=== PATIENT | male | born 1980 | race African-American/Black ===

== ENCOUNTER 2022-09-10 22:21 | Emergency (ER) | payer OTHER ==
--- NOTE | 2022-09-10 23:58 | NUR ---
CALLED TO TRIAGE NA X1
--- NOTE | 2022-09-11 00:13 | NUR ---
CALLED TO TRIAGE NAX2
--- NOTE | 2022-09-11 00:33 | NUR ---
CALLED TO TRIAGE NAX3
== END 2022-09-11 00:34 | disposition left against medical advice (07) ==
LOC: ER 22:33
DX: Z53.21 Procedure and treatment not carried out due to patient leaving prior to being seen by health care provider (principal)

== ENCOUNTER 2022-09-16 20:50 | Emergency (ER) | payer OTHER ==
[~2022-09-16] VITALS: Ht 177.8 cm; Wt 76.2 kg
--- NOTE | 2022-09-16 22:08 | NUR ---
BIBFRIEND C/O HEADACHE R SIDE X3 WEEKS. PT A/OX4. TOLERATING R/A WELL WITH NO RESP DISTRESS.
[2022-09-16] MEDS ORDERED: METOCLOPRAMIDE HCL 10 MG/2 ML VIAL ONE (22:38)
[2022-09-16] MEDS ORDERED: ACETAMINOPHEN ES 500 MG TABLET ONE (22:38)
--- NOTE | 2022-09-16 22:50 | NUR ---
RAC #20G S/L BLOOD COLLECTED AND SENT TO LAB
--- NOTE | 2022-09-16 22:52 | NUR ---
PT TAKEN TO CT VIA [facility]
[2022-09-16] MEDS ORDERED: IV NS 0.9% 1,000 ML BAG IV ONE (23:00)
[2022-09-16] MEDS ORDERED: METOCLOPRAMIDE HCL 10 MG/2 ML VIAL IV ONE (23:00)
[2022-09-16] MEDS ORDERED: ACETAMINOPHEN ES 500 MG TABLET PO ONE (23:00)
[2022-09-16 23:13] LABS: CREATININE 1.4 mg/dL (0.6-1.3); POTASSIUM 3.8 mmol/L (3.5-5.1)
[2022-09-16 23:17] LABS: BASOPHILS % (AUTO) 0.9 % (0.0-2.0); EOSINOPHILS % (AUTO) 8.7 % (0.0-6.0); HEMATOCRIT 40 % (39-51); HEMOGLOBIN 13.3 g/dL (13.5-17.5); LYMPHOCYTES # (AUTO) 1.7 K/uL (0.8-4.8); LYMPHOCYTES % (AUTO) 37.4 % (20.0-44.0); MEAN CORPUSCULAR HGB CONC 33 g/dl (31.0-36.0); MEAN CORPUSCULAR VOLUME 91 fL (80-96); MONOCYTES # (AUTO) 0.5 K/uL (0.1-1.30); MONOCYTES % (AUTO) 10.4 % (2.0-12.0); NEUTROPHILS # (AUTO) 1.9 K/uL (1.8-8.9); NEUTROPHILS % (AUTO) 42.6 % (43.0-81.0); PLATELET COUNT (AUTO) 278 K/uL (150-450); RED BLOOD CELL COUNT(AUTO) 4.44 MIL/uL (4.5-6.0); WHITE BLOOD COUNT (AUTO) 4.5 K/uL (4.3-11.0)
[2022-09-16 23:25] LABS: ALBUMIN 2.6 g/dL (3.4-5.0); BILIRUBIN,DIRECT 0.1 mg/dL (0.0-0.2); BILIRUBIN,TOTAL 0.2 mg/dL (0.2-1.0); TOTAL PROTEIN, SERUM 6.7 g/dL (6.4-8.2)
[2022-09-16] MEDS ORDERED: METO-295 PO (23:43)
--- NOTE | 2022-09-16 23:57 | NUR ---
Patient discharged to home in stable condition. Written and verbal after care instructions given. Patient verbalizes understanding of instruction. IV removed. Catheter intact and site benign. Pressure and 4x4 applied to site. No bleeding noted.
[2022-09-16 23:58] VITALS: BP 125/90
== END 2022-09-16 23:59 | disposition home or self-care (01) ==
LOC: ER 20:52
DX: R51.9 Headache, unspecified (principal)
CPT/HCPCS: 99285; 96374; 70450; 96361; 85025; 80048; 80076; 36415; J2765; J7030